=== PATIENT | female | born 1990 | race Caucasian/White ===

== ENCOUNTER 2018-08-16 13:19 | Emergency (ER) | payer SELFPAY ==
[2018-08-16] MEDS ORDERED: Lidocaine 1% w/Epinephrine 1:100K 20 ML VIAL ONE (13:59)
[2018-08-16] MEDS ORDERED: Ketorolac Tromethamine 30 MG/ML VIAL ONE (13:59)
[2018-08-16] MEDS ORDERED: Adacel (T-DAP) 0.5 ML SYRINGE ONE (13:59)
== END 2018-08-16 14:45 | disposition home or self-care (01) ==
LOC: ERS 13:19
DX: L02.211 Cutaneous abscess of abdominal wall (principal); L03.311 Cellulitis of abdominal wall; F17.210 Nicotine dependence, cigarettes, uncomplicated
CPT/HCPCS: 10060; 90471; 90715; 96372; J1885; J2001

== ENCOUNTER 2018-08-17 00:25 | Inpatient (IN) | payer SELFPAY ==
[2018-08-17] MEDS ORDERED: Piperacillin/Tazobactam 4.5 GM VIAL ONE (00:48)
[2018-08-17 01:04] LABS: #Basophils 0.1 thou/uL (0.0-0.2); #Eosinphils 0.2 thou/uL (0.0-0.7); #Lymphocytes 1.4 thou/uL (1.20-3.40); #Monocytes 0.9 thou/uL (0.11-0.59); #Neutrophils 9.8 thou/uL (1.40-6.50); %Basophils 0.4 % (0.0-1.0); %Lymphocytes 11.4 % (21.0-51.0); %Monocytes 7.1 % (0.0-10.0); %Neutrophils 79.1 % (42.0-75.0); Hemoglobin 14.1 g/dL (12.0-16.0); Mean Corpuscular HGB CONC 34.9 g/dL (32.0-36.0); Mean Corpuscular Hemoglobin 31.6 pg (27.0-31.0); Mean Corpuscular Volume 90.6 fL (78.0-98.0); Mean Platelet Volume 8.3 fL (7.4-10.4); Platelet Count 193 thou/uL (130-400); RBC Distribution Width 11.3 % (11.5-14.5); Red Blood Cell (RBC) Count 4.45 mill/uL (4.20-5.40); White Blood Cell (WBC) Count 12.4 thou/uL (4.8-10.8)
[2018-08-17 01:24] LABS: ALT (SGPT) 17 U/L (8-55); AST (SGOT) 15 U/L (5-34); Alkaline Phosphatase 66 U/L (40-150); Anion Gap 15 mmol/L (10-20); BUN (Urea Nitrogen) 11 mg/dL (7.0-18.7); Bilirubin, Total 0.4 mg/dL (0.2-1.2); Calc. Creatinine Clearance 0 mL/min (70-130); Calcium 8.7 mg/dL (7.8-10.44); Carbon Dioxide 20 mmol/L (22-29); Chloride 106 mmol/L (98-107); Estimated GFR-MDRD 72; Globulin 3.1 g/dL (2.4-3.5); Glucose 122 mg/dL (70-105); Potassium 3.9 mmol/L (3.5-5.1); Protein, Total 7.1 g/dL (6.0-8.3); Sodium 137 mmol/L (136-145)
[2018-08-17 01:26] LABS: BHCG - Serum Negative (NEGATIVE); Pregs Control Background? CLEAR/WHITE (CLR/WHITE); Pregs Control Bar Appear? YES (CONTROL BAR)
[2018-08-17] MEDS ORDERED: Acetaminophen 325 MG TAB ONE (03:24)
[2018-08-17] MEDS ORDERED: D5 1/2 NS w/20 mEq KCL 1,000 ML IV SCH (03:30)
[2018-08-17] MEDS ORDERED: Acetaminophen 325 MG TAB PO PRN (03:30)
[2018-08-17] MEDS ORDERED: Ondansetron ODT 4 MG TAB SL PRN (03:30)
[2018-08-17] MEDS ORDERED: Ondansetron PF 4 MG/2 ML Vial IVP PRN (03:30)
[2018-08-17] MEDS ORDERED: HYDROcodone/Acetaminophen 5/325 mg Tablet PO PRN ×2 (03:30)
[2018-08-17] MEDS ORDERED: Morphine 4 MG/ML VIAL SLOW IVP PRN (03:31)
[2018-08-17] MEDS ORDERED: D5 1/2 NS w/20 mEq KCL 1,000 ML ONE (03:55)
[2018-08-17 04:32] LABS: Bilirubin Negative (Negative); Blood, Urine Negative (Negative); Clarity CLEAR (Clear); Glucose, Urine (Dipstick) Negative (Negative); Leukocyte Negative (Negative); Nitrite Negative (Negative); Protein, Urine (Dipstick) Negative (Neg-Trace); Specific Gravity, Urine 1.041 (1.002-1.036); Urobilinogen 0.2 mg/dL (0.2-1.0); pH, Urine 5.5 (5.0-9.0)
[2018-08-17 04:54] LABS: Lactic Acid 1.4 mmol/L (0.5-2.2)
[2018-08-17] MEDS ORDERED: Zolpidem Tartrate 5 MG TAB PO PRN (07:33)
[2018-08-17] MEDS ORDERED: HYDROcodone/Acetaminophen 7.5/325 mg Tablet PO PRN (07:33)
[2018-08-17] MEDS ORDERED: Ondansetron ODT 4 MG TAB PO PRN (07:33)
--- NOTE | 2018-08-17 07:51 | CT ---
PRELIMINARY REPORT/[facility]/EMERGENTY AFTER-HOURS PROCEDURE CT Abdomen and Pelvis With Contrast EXAM DATE/TIME: 08/17/2018 1:44 AM CLINICAL HISTORY: 28 years old, female; Signs and symptoms; Other: Abscess; Patient HX: F28 presents to ed for fever. P t's family reports PT was seen here earlier today for an abscess and now reports fever of 103 at home . Pt's family reports pt's abscess and surrounding redness looks about the same as it did earlier. Pt's family reports pt's last tetanus shot was earlier today while here TECHNIQUE: Axial computed tomography images of the abdomen and pelvis with intravenous contrast. Coronal reformatted images were created and reviewed. COMPARISON: No relevant prior studies available. FINDINGS: Lower thorax: No acute findings. ABDOMEN: Liver: No acute findings. No mass. Gallbladder and bile ducts: Prior cholecystectomy. Pancreas: No acute findings. No mass. No ductal dilation. Spleen: No acute findings. No mass. Adrenals: No acute findings. No mass. Kidneys and ureters: No acute findings. No mass. No hydronephrosis. Stomach and bowel: Fecal colonic loading. Diverticulosis. Fluid-filled nonspecific small bowel loops. No bowel obstruction. Appendix: No evidence of appendicitis. PELVIS: Bladder: No acute findings. Reproductive: No acute findings. ABDOMEN and PELVIS: Intraperitoneal space: No free air. No significant fluid collection. Bones/joints: No acute fracture. Soft tissues: Mild lower anterior abdominal/pelvic wall subcutaneous stranding/densities, edema, predominantly on the left. No collection. Vasculature: No acute findings. No abdominal aortic aneurysm. Lymph nodes: No significant lymphadenopathy. IMPRESSION: Mild left anterior abdominal/pelvic wall subcutaneous stranding/edema; recommend clinical correlation for cellulitis. No collection. Thank you for allowing us to participate in the care of your patient. Dictated and Authenticated by: Zach London MD 08/17/2018 3:27 AM Central Time ([place] & [place]) FINAL REPORT CT ABDOMEN AND PELVIS WITH IV CONTRAST: Date: 08-17-18 Performed on emergency basis at 0145 hours. History: Abdominal pain. Abscess. Fever. Comparison: 09-24-16 FINDINGS: I agree with the preliminary report by Dr. London from [facility]. Subtle stranding within the left lower quadrant anterior subcutaneous fat. No well-defined fluid collection. No internal inflamma tion. Code QA. POS: [facility]
[2018-08-17] MEDS ORDERED: Piperacillin/Tazobactam 3.375 GM in Sodium Chloride 0.9% 100 ML IVPB SCH ×2 (08:00→14:00)
--- NOTE | 2018-08-17 08:07 | RAD ---
PORTABLE CHEST 1 VIEW: Date: 08/17/18 Time: 0058 hours HISTORY: Fever. FINDINGS: The heart size is normal. The lungs are expanded without focal areas of consolidation, pneumothorax, or pleural effusions. IMPRESSION: No acute process. POS: [facility]
[2018-08-17] MEDS ORDERED: Cefepime 2 GM VIAL ONE (08:23)
--- NOTE | 2018-08-17 08:25 | HP ---
PRIMARY CARE PHYSICIAN: No primary care physician. Referred to the [facility] by [facility] for severe sepsis. The patient has had a red tender spot on her lower abdominal wall for about 4 days. She went to the emergency room yesterday. An I and D were attempted. She was discharged with a prescription for Septra. She says she took 2 doses last night. She had a fever of 103 and chills, but no sweats. She presented to the emergency room, where she was found to have a decreased blood pressure and pulse. She was given IV fluids with rapid resuscitation of her vital signs. PAST MEDICAL HISTORY: Hypoglycemia. MEDICATIONS: None. ALLERGIES: NONE. PAST SURGICAL HISTORY: Tonsillectomy as 8-year-old, cholecystectomy 2 years ago. FAMILY HISTORY: Father of colon cancer at 44. He was noted to have diabetes. Mother has coronary artery disease. The patient is single. Smokes 5 cigarettes a day. No alcohol or illicit drugs. REVIEW OF SYSTEMS: GENERAL: In addition to present illness, she had some dizziness last night before she got IV fluids, which is resolved. EYES: No double vision, blurred vision, or flashing lights. EAR, NOSE, AND THROAT: No ear pain or drainage. No nasal bleeding. No trouble swallowing. CARDIAC: No chest pain, orthopnea, or paroxysmal nocturnal dyspnea. RESPIRATION: No cough, wheezing, or asthma. GASTROINTESTINAL: No nausea, vomiting, diarrhea, or constipation. GENITOURINARY: No hematuria or dysuria. MUSCULOSKELETAL: No pain or swelling in her arms or legs. NEUROLOGICAL: No strokes, seizures, or focal weakness. PSYCHIATRIC: No anxiety or depression. SKIN: The aforementioned area of redness and tenderness in her lower abdominal wall. HEME/LYMPH: No tender or swollen lymph nodes in the axilla, inguinal, or cervical area. PHYSICAL EXAMINATION: GENERAL: : She is alert, oriented, cooperative, in no distress at all. VITAL SIGNS: On admission to the ER, blood pressure 82/42, pulse rate of 46, respirations 20, temperature of 101.2. Currently, blood pressure 122/53, pulse 76, respirations 18, and temperature is 100.2. HEAD, EYES, EARS, NOSE, AND THROAT: Reveal pupils are equal, round, and reactive. Extraocular movements are intact. Sclerae are white. Tympanic membranes are clear. Nose is clear. Oral mucous membranes are wet. Dental hygiene is good. NECK: Supple without jugular venous distention, adenopathy, or thyromegaly. CHEST: Clear to auscultation and percussion. HEART: Had a regular rate and rhythm. First and second heart sounds are clear. There are no appreciated murmurs or gallops. ABDOMEN: Soft. There is a marked erythematous area covering approximately 3 to 4 inches x 10 to 12 inches on her lower abdominal wall. There is a bandage across I and D site. There is no hepatosplenomegaly. No mass. No rebound or bruits. EXTREMITIES: Reveal no cyanosis, clubbing, or edema. PULSES: Carotid, radial, and femoral and dorsalis pedis pulses are intact, symmetric. SKIN: Warm and dry, except the aforementioned area on her lower abdominal wall, see abdomen. HEME/LYMPH: No tender or swollen lymph nodes in the axilla, inguinal, or cervical area. NEUROLOGICAL: Cranial nerves II through XII are intact. Moves all extremities. Deep tendon reflexes are symmetric. IMAGING DATA: Chest x-ray shows poor inspiration, no cardiomegaly, CHF, or infiltrate reviewed by me. No EKG was done, none needed. LABORATORY DATA: CBC; white count 12.4, hemoglobin 14.1, and platelet count 193,000 with absolute neutrophilia. Comprehensive metabolic profile; CO2 of 20, glucose 122, otherwise normal. Lactic acid was 2.3; four hours later after fluids, it was 1.4. ADMITTING DIAGNOSES: 1. Sepsis syndrome. 2. Abscess/cellulitis of the lower anterior abdominal wall. 3. Lactic acidosis, resolved. 4. Hypotension, resolved. 5. Tobacco usage. PLAN: 1. I and D and blood cultures have been obtained. 2. We will start cefepime 2 g q.12 and vancomycin 1 g q.12 with pharmacy to track vancomycin levels. We will repeat CBC, basic metabolic profile in the next 2 days. We will give IV fluids normal saline at the rate of 100 mL an hour. P.r.n. medicines for pain, sleep, and nausea have been added to the medication profile. Venous thromboembolism agent with Lovenox has been instituted. Suspect the patient will be in the hospital 3 days. Job ID: [id number]
[2018-08-17] MEDS: Cefepime 2 GM in Sodium Chloride 0.9% 100 ML IVPB SCH ×2 (08:33→22:48)
[2018-08-17] MEDS ORDERED: Vancomycin HCl 1 GM in Sodium Chloride 0.9% 250 ML 300 ML IVPB SCH (09:00)
[2018-08-17] MEDS ORDERED: Enoxaparin Sodium 40 MG/0.4 ML SYRINGE ONE (09:06)
[2018-08-17] MEDS: Enoxaparin Sodium 40 MG/0.4 ML SYRINGE SC SCH (09:07)
[2018-08-17] MEDS ORDERED: ISOVUE-370 76%-LOCM 1 ML ONE (10:18)
[2018-08-17] MEDS: Vancomycin HCl 1.5 GM in Sodium Chloride 0.9% 250 ML 300 ML IVPB SCH ×2 (10:43→19:42)
[2018-08-17] MEDS: Sodium Chloride 0.9% 1,000 ML IV SCH (10:43)
[2018-08-17] MEDS: Acetaminophen 325 MG TAB PO PRN ×2 (10:48→16:51)
[2018-08-17 12:08] LABS: Lactic Acid 2.5 mmol/L (0.5-2.2)
[2018-08-17 17:44] VITALS: BMI 36.8
[2018-08-17] MEDS: Ibuprofen 200 MG TAB PO PRN (21:29)
[2018-08-18] MEDS: Sodium Chloride 0.9% 1,000 ML IV SCH ×2 (01:04→06:06)
[2018-08-18] MEDS: Vancomycin HCl 1.5 GM in Sodium Chloride 0.9% 250 ML 300 ML IVPB SCH (03:00)
[2018-08-18] MEDS: Ibuprofen 200 MG TAB PO PRN (07:26)
--- NOTE | 2018-08-18 07:50 | PDOC.PN ---
- Subjective Encounter Start Date: 08/18/18 Encounter Start Time: 07:46 Subjective: lower abd wall still painful - Objective Resuscitation Status - Order Detail: 08/17/18 07:29 Resuscitation Status Routine Resuscitation Status: FULL: Full Resuscitation MAR Reviewed: Yes Vital Signs & Weight: Vital Signs (12 hours) Temp Pulse Resp BP Pulse Ox 08/18/18 04:25 99.1 F 82 16 111/56 L 99 08/18/18 00:50 98.3 F 83 16 109/53 L 98 Weight Weight 228 lb Result Diagrams: 08/17/18 00:45 08/17/18 00:45 Phys Exam - Physical Examination Neck: no JVD Respiratory: clear to auscultation bilateral Cardiovascular: RRR, no significant murmur Gastrointestinal: soft, non-tender, positive bowel sounds lower abd wall still erythemic, tender Musculoskeletal: edema present Dx/Plan (1) Sepsis Code(s): A41.9 - SEPSIS, UNSPECIFIED ORGANISM Status: Acute (2) Abdominal wall abscess Code(s): L02.211 - CUTANEOUS ABSCESS OF ABDOMINAL WALL Status: Acute (3) Lactic acid acidosis Code(s): E87.2 - ACIDOSIS Status: Acute - Plan cont iv fluids -: cont cefepime/vancomycin iv * .
[2018-08-18 08:05] VITALS: BP 131/67; TEMP 101.2
[2018-08-18] MEDS: Enoxaparin Sodium 40 MG/0.4 ML SYRINGE SC SCH (09:46)
[2018-08-18] MEDS: Cefepime 2 GM in Sodium Chloride 0.9% 100 ML IVPB SCH (09:46)
--- NOTE | 2018-08-18 12:44 | DIS ---
DATE OF ADMISSION: 08/17/2018 DATE OF DISCHARGE: 08/18/2018 TRANSFER OF CARE: PRIMARY CARE PHYSICIAN: No PCP. The patient left AMA. DIAGNOSES: 1. Sepsis. 2. Cutaneous abscess of abdominal wall. 3. Hypotension, resolved. 4. Lactic acidosis. DISCHARGE MEDICATIONS: None. The patient did state to the nurse that she had a prescription for Septra at home and she would take that. CODE STATUS: Full. DIET: As tolerated. HOSPITAL COURSE: The patient referred to the [facility] by [facility] for sepsis. The patient's history was notable for a tender spot on her abdominal wall for which she was seen in the emergency room on the day before and had an I and D of her abdominal wall. Sent home on Septra. She presented the next day, feeling bad, was found to have a significant area of cellulitis on her lower abdominal wall. She had mild elevation of white count 12.4 with absolute neutrophilia. Blood cultures were drawn. The patient was started on broad-spectrum antibiotics since she had taken Septra as an outpatient. We then made rounds on her this morning. The cellulitis was essentially unchanged. She had had a temperature of a 101.2. I was called because she refused test and wanting to go home. I spoke to the patient. She stated that she did not want any more treatment or test in the hospital that she wanted to go home. She was alert and oriented. After I spoke to her, the nurse spoke to her at length about the dangers to herself, and she stated that she was going home and she would take the medicine she had and she left. I suspect that she will return within 24 hours to the emergency room. Job ID: [id number]
== END 2018-08-18 10:24 | disposition left against medical advice (07) | DRG 872 ==
LOC: ERS 00:25 → ERHOLD 01:37 → 3SE 09:57
PROVIDERS: ADMIT Hospitalist; ATTEND Hospitalist
DX: A41.9 Sepsis, unspecified organism (principal); E87.2 Acidosis; L03.311 Cellulitis of abdominal wall; L02.211 Cutaneous abscess of abdominal wall; F17.210 Nicotine dependence, cigarettes, uncomplicated; Z90.89 Acquired absence of other organs; Z90.49 Acquired absence of other specified parts of digestive tract
CPT/HCPCS: 36415; 71045; 74177; 80053; 81003; 83605; 83690; 84703; 85025; 87040; 87804; 96361; 96365; 96367; J0692; J1650; J2543; J3370; J7050; Q9966

== ENCOUNTER 2019-04-12 23:58 | Emergency (ER) | payer SELFPAY | END 2019-04-13 01:58 | disposition home or self-care (01) | LOC: ERS 23:58 | DX: S61.256A Open bite of right little finger without damage to nail, initial encounter (principal); L08.9 Local infection of the skin and subcutaneous tissue, unspecified; F17.210 Nicotine dependence, cigarettes, uncomplicated; W55.01XA Bitten by cat, initial encounter | CPT/HCPCS: 99283 ==

== ENCOUNTER 2019-04-23 04:30 | Emergency (ER) | payer OTHER, SELFPAY ==
--- NOTE | 2019-04-23 07:41 | RAD ---
Left shoulder 3 views HISTORY: Left shoulder injury. FINDINGS: Acromioclavicular and glenohumeral alignment are maintained. No acute fracture, dislocation , or aggressive osseous erosions. IMPRESSION: No acute osseous abnormalities are demonstrated.
== END 2019-04-23 06:25 | disposition home or self-care (01) ==
LOC: ERS 04:30
DX: S43.402A Unspecified sprain of left shoulder joint, initial encounter (principal); F17.210 Nicotine dependence, cigarettes, uncomplicated; V29.9XXA Motorcycle rider (driver) (passenger) injured in unspecified traffic accident, initial encounter

== ENCOUNTER 2021-03-20 20:50 | Emergency (ER) | payer SELFPAY ==
[2021-03-20] MEDS ORDERED: Ketorolac Tromethamine 30 MG/ML VIAL ONE (22:37)
[2021-03-20] MEDS ORDERED: Acetaminophen 325 MG TAB ONE (22:37)
== END 2021-03-20 22:57 | disposition home or self-care (01) ==
LOC: ERS 20:50
DX: M54.41 Lumbago with sciatica, right side (principal); F17.210 Nicotine dependence, cigarettes, uncomplicated
CPT/HCPCS: 96372; 99283; J1885